=== PATIENT | male | born 1940 | race Caucasian/White ===

== ENCOUNTER 2016-10-19 19:49 | Emergency (ER) | payer MEDICARE ==
[~2016-10-19] VITALS: Ht 172.7 cm; Wt 94.8 kg
--- NOTE | 2016-10-19 20:16 | ED.ADGEN ---
Adult General HPI HPI Patient is a 76-year-old male presents emergency department complaining of substernal chest pressure. Patient states this started approximately 2 hours ago. Began after a large helping of beans. Patient does have a significant cardiac history but reports this does not feel the same as his previous DC. He is here at the urging of his family. He did most recently have a bypass 6 months ago. Patient denies any associated symptoms such as nausea, vomiting, diaphoresis, or dyspnea. Patient did see his hoof trimmer the last 10 days. Review of Systems Review of Systems Constitutional: Denies fever or chills [] Eyes: Denies change in visual acuity, redness, or eye pain [] HENT: Denies nasal congestion or sore throat [] Respiratory: Denies cough or shortness of breath [] Cardiovascular: No additional information not addressed in HPI [] GI: Denies abdominal pain, nausea, vomiting, bloody stools or diarrhea [] : Denies dysuria or hematuria [] Musculoskeletal: Denies back pain or joint pain [] Integument: Denies rash or skin lesions [] Neurologic: Denies headache, focal weakness or sensory changes [] Endocrine: Denies polyuria or polydipsia [] Allergies Allergies Allergies Coded Allergies Type Severity Reaction Last Updated Verified No Known Drug Allergies 10/19/16 No Physical Exam Physical Exam Constitutional: Well developed, well nourished, no acute distress, non-toxic appearance. [] HENT: Normocephalic, atraumatic, bilateral external ears normal, oropharynx moist, no oral exudates, nose normal. [] Eyes: PERRLA, EOMI, conjunctiva normal, no discharge. [] Neck: Normal range of motion, no tenderness, supple, no stridor. [] Cardiovascular:Heart rate regular rhythm, no murmur [] Lungs & Thorax: Bilateral breath sounds clear to auscultation [] Abdomen: Bowel sounds normal, soft, no tenderness, no masses, no pulsatile masses. [] Skin: Warm, dry, no erythema, no rash. [] Back: No tenderness, no CVA tenderness. [] Extremities: No tenderness, no cyanosis, no clubbing, ROM intact, no edema. [] Neurologic: Alert and oriented X 3, normal motor function, normal sensory function, no focal deficits noted. [] Psychologic: Affect normal, judgement normal, mood normal. [] Current Patient Data Vital Signs Vital Signs Date Time Temp Pulse Resp B/P Pulse Ox O2 Delivery O2 Flow Rate FiO2 10/19/16 20:10 98.1 94 20 162/107 93 Room Air Lab Results Laboratory Tests Test 10/19/16 21:03 10/19/16 21:06 10/19/16 21:32 White Blood Count 4.3x10^3/uL (4.0-11.0) Red Blood Count 4.58x10^6/uL (4.30-5.70) Hemoglobin 13.5g/dL (13.0-17.5) Hematocrit 41.2% (39.0-53.0) Mean Corpuscular Volume 90fL (79-100) Mean Corpuscular Hemoglobin 30pg (25-35) Mean Corpuscular Hemoglobin Concent 33g/dL (31-37) Red Cell Distribution Width 14.6% (11.5-14.5) H Platelet Count 136x10^3/uL (140-400) L Neutrophils (%) (Auto) 54% (31-73) Lymphocytes (%) (Auto) 34% (24-48) Monocytes (%) (Auto) 10% (0-9) H Eosinophils (%) (Auto) 1% (0-3) Basophils (%) (Auto) 1% (0-3) Neutrophils # (Auto) 2.3x10^3uL (1.8-7.7) Lymphocytes # (Auto) 1.5x10^3/uL (1.0-4.8) Monocytes # (Auto) 0.4x10^3/uL (0.0-1.1) Eosinophils # (Auto) 0.1x10^3/uL (0.0-0.7) Basophils # (Auto) 0.0x10^3/uL (0.0-0.2) Creatine Kinase 152U/L (39-308) Creatine Kinase MB (Mass) 3.2ng/mL (0.0-3.6) Creatine Kinase MB Relative Index 2.1% (0-4) POC Hemoglobin 13.6gm/dL POC Hematocrit 40% POC Sodium 141mmol/L (135-145) POC Potassium 4.6mmol/L (3.5-5.0) POC Chloride 104mmol/L (98-110) POC Total CO2 26mmol/L (23-32) Anion Gap 17mmol/L (6-14) H POC Blood Urea Nitrogen 36mg/dL (8-26) H POC Creatinine 1.5mg/dL (0.5-1.4) H Glucose Level 140mg/dL (60-99) H POC Ionized Calcium (Saul) 1.22mmol/L (1.13-1.32) POC Troponin I 0.00ng/ml (<0.08) EKG EKG EKG interpreted by me, normal sinus rhythm, 94 bpm, normal axis, no ST segment elevation. [] Radiology/Procedures Radiology/Procedures Chest x-ray interpreted by me, no acute cardiopulmonary process. There are postsurgical changes and cardiomegaly but no definitive infiltrate or effusion [ ] Course & Med Decision Making Course & Med Decision Making Pertinent Labs and Imaging studies reviewed. (See chart for details) The patient reports she feels much better with no intervention. He expresses like to go home tonight. His workup is largely reassuring. I have agreed to let him go home if he will call Dr. Thrasher in the morning and return emergency department sooner she develops any new or worsening symptoms. The patient has family voice understanding and agreement. [] Final Impression Final Impression Chest pain [] Problems: Dragon Disclaimer Dragon Disclaimer This electronic medical record was generated, in whole or in part, using a voice recognition dictation system. EBENEZER WASHBURN MD Oct 19, 2016 20:16
[2016-10-19 21:12] LABS: HEMOGLOBIN ISTAT 13.6 gm/dL; POTASSIUM ISTAT 4.6 mmol/L (3.5-5.0)
[2016-10-19 21:22] LABS: BASO % 1 % (0-3); EOS # 0.1 x10^3/uL (0.0-0.7); EOS % 1 % (0-3); HEMATOCRIT 41.2 % (39.0-53.0); HEMOGLOBIN 13.5 g/dL (13.0-17.5); LYMPH # 1.5 x10^3/uL (1.0-4.8); LYMPH % 34 % (24-48); MEAN CORPUSCULAR HEMOGLOBIN 30 pg (25-35); MEAN CORPUSCULAR HGB CONC 33 g/dL (31-37); MEAN CORPUSCULAR VOLUME 90 fL (79-100); MONO # 0.4 x10^3/uL (0.0-1.1); MONO % 10 % (0-9); NEUT # 2.3 x10^3uL (1.8-7.7); NEUT % 54 % (31-73); PLATELET COUNT 136 x10^3/uL (140-400); RED BLOOD COUNT 4.58 x10^6/uL (4.30-5.70); RED CELL DISTRIBUTION WIDTH 14.6 % (11.5-14.5); WHITE BLOOD COUNT 4.3 x10^3/uL (4.0-11.0)
[2016-10-19 22:28] VITALS: BP 165/81
--- NOTE | 2016-10-20 08:32 | RAD ---
Portable chest, 10/19/2016: History: Chest pain Comparison is made to a study from 01/31/2012. There has been a previous median sternotomy. The left ventricle is mildly enlarged. There is calcific plaquing of the aorta. The pulmonary vascularity is normal. No pulmonary infiltrates are seen. There is no evidence of pleural fluid. IMPRESSION: 1. Cardiomegaly and aortic atherosclerosis. 2. No acute abnormality is detected.
--- NOTE | 2016-10-20 11:42 | EKG ---
[address] [address] Test Date: 2016-10-19 Test Time: 20:00:21 Pat Name: MANUEL MONSON Department: Room: Gender: M Edging Catcher: : 1940 Requested By: EBENEZER WASHBURN Order Number: [id number] Reading MD: Measurements Intervals Forman Rate: 94 P: 33 AR: 172 QRS: 19 QRSD: 100 T: -23 QT: 340 QTc: 430 Interpretive Statements SINUS RHYTHM QRS(T) CONTOUR ABNORMALITY CONSIDER ANTEROLATERAL MYOCARDIAL DAMAGE CONSISTENT WITH INFERIOR INFARCT AGE UNDETERMINED ABNORMAL ECG RI6.01 Unconfirmed report No previous ECG available for comparison
== END 2016-10-19 22:25 | disposition home or self-care (01) ==
LOC: ER 19:49
DX: R07.89 Other chest pain (principal); I51.7 Cardiomegaly; Z95.1 Presence of aortocoronary bypass graft
CPT/HCPCS: 36415; 71010; 80047; 82553; 84484; 85027; 99285-25

== ENCOUNTER → 2019-04-04 | Outpatient (CLI) | payer MEDICARE ==
--- NOTE | 2019-04-05 13:07 | CARD ---
MR#: [id number] Date of Study: 04/04/2019 Ordering Physician: LUIS DELGADO, Referring Physician: LUIS DELGADO Tech: Summer Garcia RDCS APPROVED REPORT EXAM: Two-dimensional and M-mode echocardiogram with Doppler and color Doppler. Other Information Quality : AverageHR: 65bpm Rhythm : NSRTechnically limited study due to body habitus. INDICATION CAD 2D DIMENSIONS RVDd3.4 (2.9-3.5cm)Left Atrium(2D)5.6 (1.6-4.0cm) IVSd1.7 (0.7-1.1cm)Aortic Root(2D)3.5 (2.0-3.7cm) LVDd4.8 (3.9-5.9cm)LVOT Diameter2.4 (1.8-2.4cm) PWd1.5 (0.7-1.1cm)LVDs3.7 (2.5-4.0cm) FS (%) 22.9 %SV48.1 ml LVEF(%)48.0 (>50%) M-Mode DIMENSIONS Left Atrium(MM)4.74 (2.5-4.0cm)Aortic Root3.62 (2.2-3.7cm) Aortic Valve AoV Peak Chuck.188.7cm/sAoV VTI43.4cm AO Peak GR.14.2mmHgLVOT Peak Chuck.72.0cm/s LVOT VTI 15.53cmAO Mean GR.10mmHg HANNAH (VMAX)1.04qt1OHQ (VTI)1.60cm2 AI P 1/2 Lfcg8000ij Mitral Valve MV E Gdhpedsq32.5cm/sMV DECEL UEUT250tj MV A Ajfdcsdx95.5cm/sE/A Ratio0.9 Pulmonary Valve PV Peak Eqfnbddw85.6cm/sPV Peak Grad.2mmHg Tricuspid Valve TR P. Ymljahub734gw/sRAP OULVCWXT0rpCi TR Peak Gr.32prVxBKFI10dbAc LEFT VENTRICLE The left ventricle is normal size. There is moderate concentric left ventricular hypertrophy. Left ve ntricle systolic function is mildly decreased. The Ejection Fraction is 45-50%. Septal motion suggest haider of conduction defect. Transmitral Doppler flow pattern is Grade I-abnormal relaxation pattern. RIGHT VENTRICLE The right ventricle is normal size. There is normal right ventricular wall thickness. The right ventr icular systolic function is normal. ATRIA The left atrium is moderately dilated. The right atrium is mildly dilated. The interatrial septum is intact with no evidence for an atrial septal defect or patent foramen ovale as noted on 2-D or Dopple r imaging. AORTIC VALVE The aortic valve is trileaflet. The aortic valve is moderately calcified. Doppler and Color Flow reve aled mild aortic regurgitation. There is no significant aortic valvular stenosis. MITRAL VALVE Mitral annular calcification is mild to moderate. There is no evidence of mitral valve prolapse. Ther e is no mitral valve stenosis. Doppler and Color-flow revealed trace mitral regurgitation. TRICUSPID VALVE The tricuspid valve is normal in structure and function. Doppler and Color Flow revealed mild tricusp id regurgitation. The PA pressure was estimated at 27 mmHg. There is no tricuspid valve prolapse or v egetation. There is no tricuspid valve stenosis. PULMONIC VALVE The pulmonic valve is not well visualized. GREAT VESSELS The aortic root is normal in size. The ascending aorta is Mildly dilated at 4.5cm. The IVC was not vi sualized. PERICARDIAL EFFUSION There is no evidence of significant pericardial effusion. Critical Notification Critical Value: No <Conclusion> Left ventricle systolic function is mildly decreased. The Ejection Fraction is 45-50%. There is moderate concentric left ventricular hypertrophy. Septal motion suggestive of conduction defect. Doppler and Color Flow revealed mild aortic regurgitation. The ascending aorta is Mildly dilated at 4.5cm. Signed by : Luis E Myles, Electronically Approved : 04/04/2019 12:12:29
--- NOTE | 2019-04-05 13:07 | RAD ---
MR#: [id number] Date of Study: 04/04/2019 Ordering Physician: LUIS DELGADO, Referring Physician: LUIS DELGADO, Tech: Lo Montiel, GINNY, RVT, RTR APPROVED REPORT Patient Location: OUT-PATIENT Indications Bilateral Leg fatigue Risk Factors Hyperlipidemia Cardiac Disease Diabetes Grayscale images of the bilateral lower extremity arterial vessels revealed diffuse plaque. On the right there is severe calcification and plaque at the level of the common femoral artery and b ifurcation. There is likely high-grade stenosis involving the right common femoral artery of greater than 70% stenosis by velocity criteria. Below the knee there are diminished velocities in the posteri or tibial and anterior tibial vessels proximally suggestive of greater than 50% stenosis. The peronea l velocities are within normal limits. On the left no significant high-grade focal obstruction is noted above the knee. Below the knee there is likely occlusion or high-grade disease in the posterior tibial artery and anterior tibial artery with 1 vessel runoff in the form of the peroneal artery. VELOCITY AND DOPPLER WAVEFORM ANALYSIS RIGHT cm/secWaveformSeverity LEFT cm/secWaveform Severity pCFA 312.0pCFA 91.8 dCFA 273.8dCFA 73.0 Prof Fem Art. 105.2Prof Fem Art. 88.9 Fem Art Prox. 131.5Fem Art Prox. 90.4 Fem Art Mid. 68.1Fem Art Mid. 108.5 Fem Art Dist. 65.6Fem Art Dist. 81.7 Pop Art(AK) 88.0Pop Art(AK) 120.0 BOARD FINISHER Prox. 27.3PTA Prox. 27.8 BOARD FINISHER Dist. 65.7PTA Dist. 99.0 Per Art Prox. 61.1Per Art Prox. 81.0 EMILE Prox. 34.7ATA Prox. 35.6 DPA 22DPA 34 Critical Notification Critical Value: No <Conclusion> 1. High-grade right common femoral arterial disease 2. 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 Signed by : Luis E Myles, Electronically Approved : 04/04/2019 12:00:47
== END | disposition home or self-care (01) ==
LOC: US 09:35
PROVIDERS: ATTEND Internal Medicine Cardiovascular Disease
DX: I08.3 Combined rheumatic disorders of mitral, aortic and tricuspid valves (principal); I25.10 Atherosclerotic heart disease of native coronary artery without angina pectoris; I65.21 Occlusion and stenosis of right carotid artery; R53.83 Other fatigue; E11.9 Type 2 diabetes mellitus without complications
CPT/HCPCS: 93306; 93925

== ENCOUNTER → 2019-08-23 | Day surgery (SDC) | payer MEDICARE ==
[~2019-08-23] MED LIST: APIX5TAB3 PO; ASPI-630 PO; ATOR40TA59 PO; CITA20TA6 PO; GLYB5TAB3 PO; LIDOCAINE 2% 20 ML VIAL. ONE; LIDOCAINE 2%/EPI 1:100,000 20 ML VIAL. ONE; LOSA100T14 PO; METF500T16 PO; METO-239 PO
[2019-08-23 11:35] VITALS: BP 138/97
--- NOTE | 2019-08-23 12:27 | PDOC ---
PROVIDER NOTE PROVIDER NOTE PROVIDER NOTE PROCEDURE Implantation of Biotronik Loop Recorder INDICATIONS: TIA of uncertain etiology r/o atrial fibrillation COMPLICATIONS None PROCEDURAL DETAILS An informed consent was obtained from patient. His left chest was prepped and draped in usual fashion. 10 cc 2% lidocaine was infiltrated into skin and subcutaneous tissues for local anasthesia. An incision was made over 3rd intercostal space 1 inch from midsternal line and using the deploying kit provided, a Biotronik Biomonitor III serial number [id number] was inserted in the subcutaneous tissue. Patient tolerated the procedure well. Hemostasis was secured. There were no immediate complications. LUIS DELGADO MD Aug 23, 2019 12:27
== END | disposition home or self-care (01) ==
LOC: SURG 11:26
PROVIDERS: ATTEND Internal Medicine Cardiovascular Disease
DX: Z45.09 Encounter for adjustment and management of other cardiac device (principal); G47.30 Sleep apnea, unspecified; E78.00 Pure hypercholesterolemia, unspecified; I10 Essential (primary) hypertension; J45.909 Unspecified asthma, uncomplicated; F32.9 Major depressive disorder, single episode, unspecified; F41.9 Anxiety disorder, unspecified; F17.210 Nicotine dependence, cigarettes, uncomplicated; K21.9 Gastro-esophageal reflux disease without esophagitis; Z86.010 Personal history of colon polyps; Z80.0 Family history of malignant neoplasm of digestive organs
CPT/HCPCS: 33285; C1764; 33282; J2001

== ENCOUNTER → 2020-07-08 | Outpatient (CLI) | payer MEDICARE ==
[2019-08-23 11:35] VITALS: BP 138/97
[~2020-07-08] MED LIST changes: -LIDOCAINE 2% 20 ML VIAL. ONE; -LIDOCAINE 2%/EPI 1:100,000 20 ML VIAL. ONE; +REGADENOSON 0.4 MG/5 ML DISP.SYRIN. IV ONE
--- NOTE | 2020-07-08 12:40 | CARD ---
MR#: [id number] Date of Study: 07/08/2020 Ordering Physician: LUIS THRASHER, Referring Physician: LUIS THRASHER, Tech: Lo Daigle APPROVED REPORT EXAM: Two-dimensional and M-mode echocardiogram with Doppler and color Doppler. Other Information Quality : AverageHR: 81bpm INDICATION Cardiac Disease: CAD Surgery/Intervention CABG: Date: 2015 Site: [place] RISK FACTORS Hypertension Hyperlipidemia Diabetes 2D DIMENSIONS RVDd3.9 (2.9-3.5cm)Left Atrium(2D)4.7 (1.6-4.0cm) IVSd1.3 (0.7-1.1cm)Aortic Root(2D)3.4 (2.0-3.7cm) LVDd5.7 (3.9-5.9cm)LVOT Diameter2.0 (1.8-2.4cm) PWd1.2 (0.7-1.1cm)LVDs4.5 (2.5-4.0cm) FS (%) 21.5 %SV68.8 ml LVEF(%)43.0 (>50%) Aortic Valve AoV Peak Chuck.230.4cm/sAoV VTI51.5cm AO Peak GR.21.2mmHgLVOT Peak Chuck.102.9cm/s LVOT VTI 20.59cmAO Mean GR.13mmHg HANNAH (VMAX)1.11oy4IPL (VTI)1.27cm2 AI P 1/2 Dhbx865ds Mitral Valve MV E Mphfnjaz43.8cm/sMV DECEL SXZR963bx MV A Ljmjvkcu595.8cm/sE/A Ratio0.7 Pulmonary Valve PV Peak Xvjwcbfa88.8cm/sPV Peak Grad.1mmHg Tricuspid Valve TR P. Mgmqimyw935hd/sRAP GPXKEVGI4kwCx TR Peak Gr.71mqNfSYWW76kyHp Pulmonary Vein S1 Ttnmdtkr07.4cm/sD2 Vjwwbppz76.7cm/s LEFT VENTRICLE The left ventricle is normal size. There is mild to moderate concentric left ventricular hypertrophy. The left ventricular systolic function is normal. The Ejection Fraction is 50-55%. Septal motion con sistent with conduction abnormality Transmitral Doppler flow pattern is Grade I-abnormal relaxation p attern. RIGHT VENTRICLE The right ventricle is normal size. There is normal right ventricular wall thickness. The right ventr icular systolic function is normal. ATRIA The left atrium is mildly dilated. The right atrium is borderline dilated. The interatrial septum is intact with no evidence for an atrial septal defect or patent foramen ovale as noted on 2-D or Dopple r imaging. AORTIC VALVE The aortic valve is thickened but opens well. Doppler and Color Flow revealed mild aortic regurgitati on. Calculated aortic valve area is 1.6 cm2 with maximum pressure gradient of 22 mmHg and mean pressu re gradient of 13 mmHg. There is no significant aortic valvular stenosis. MITRAL VALVE Mitral annular calcification is mild. There is no evidence of mitral valve prolapse. There is no mitr al valve stenosis. Doppler and Color Flow revealed no mitral valve regurgitation noted. TRICUSPID VALVE The tricuspid valve is normal in structure and function. Doppler and Color Flow revealed trace tricus pid regurgitation with an estimated PAP of 27 mmHg. There is no tricuspid valve stenosis. PULMONIC VALVE The pulmonic valve is not well visualized. Doppler and Color Flow revealed trace to mild pulmonic magali vular regurgitation. GREAT VESSELS The aortic root is normal in size. The ascending aorta is normal in size. The IVC is normal in size a nd collapses >50% with inspiration. PERICARDIAL EFFUSION There is no evidence of significant pericardial effusion. Critical Notification Critical Value: No <Conclusion> The left ventricular systolic function is normal. The Ejection Fraction is 50-55%. Transmitral Doppler flow pattern is Grade I-abnormal relaxation pattern. Mild aortic regurgitation. Trace tricuspid regurgitation with an estimated PAP of 27 mmHg. There is no evidence of significant pericardial effusion. Signed by : Luis Thrasher, Electronically Approved : 07/08/2020 12:39:54
--- NOTE | 2020-07-08 12:45 | RAD ---
MR#: [id number] Date of Study: 07/08/2020 Ordering Physician: LUIS THRASHER Referring Physician: UCHE [place] Tech: RT Alverto Khan) (N) APPROVED REPORT Test Type: Pharmacological Stress Nurse/Tech: RT Erin (Aracely) (N) Test Indications: coronary artery disease Cardiac History: 3 bypass 5 year ago Medications: see EHR Medical History: see EHR Resting ECG: sinus rythm Resting Heart Rate: 75 bpm Resting Blood Pressure: 188/90mmHg Pretest Chest Pain: None Nurse/Tech Notes Consent: The procedure was explained to the patient in lay terms. Informed consent was witnessed. Barber eout was entered into [employer]. History and Stress Test performed by RT Alverto Khan) (N) Pharm. Details Pharmacologic stress testing was performed using 0.4mg per 5ml of regadenoson given intravenously ove r 7-10 seconds. Stress Symptoms headache POST EXERCISE Reason for Termination: Infusion complete Max HR: 107 bpm Max Blood Pressure: 201/79mmHg INTERPRETATION Stress EKG Conclusion: Baseline EKG showed sinus rhythm. No ischemic changes at peak stress. No arr hythmias. Imaging Protocol IMAGE PROTOCOL: Rest Tc-99m/stress Tc-99m 1 day Rest: Stress: Viability: Radiopharm.Tc99m QbgoozevnMh62w Sestamibi Dose10.4mCi 30.2mCi Duration 15min. 10min. Img Date 07/08/2020 07/08/2020 Inj-Img Uuut05phj. 60min. Rest Admin Site:IV - Left ForearmAdministrator: RT Erin (R)(N) Stress Admin Site: IV - Left ForearmAdministrator: RT Alverto Khan)(N) STRESS DATA End Diast. Vol.106.0mlAv. Heart Rate92.0bpm End Syst. Vol.34.0mlCO Index BSA0.0L/min Myocardial Jngf361.0gEject. Ftbsxxyu90.0% Stress Rates Pk. Fill Rate3.12EDV/secLVtime Pk. Fill 61.30msec Pk. Empty Rate4.73ESV/secLVtime Pk. Qymmy968.40msec 1/3 Pk. Fill2.30EDV/sec Stress Scores Regional WT0.00Summed WT13.00 Regional WM0.00Summed WM5.00 Study quality was good. Left Ventricular size was at Rest and Stress. Lung uptake was . Left Ventricular ejection fraction is 69%. The rest and stress images show normal perfusion, normal contraction and thickening. LV Perf. Quant 17 Seg. SSS5.00 17 Seg. SRS7.00 17 Seg. SDS0.00 Stress Defect Extent (% LAD)0.00Rest Defect Extent (% LAD)3.80Rev. Defect Extent (% LAD)0.00 Stress Defect Extent (% LCX) 47.50Rest Defect Extent (% LCX)56.30Rev. Defect Extent (% LCX)0.00 Stress Defect Extent (% RCA)17.80Rest Defect Extent (% RCA)10.00Rev. Defect Extent (% RCA)0.00 Stress Defect Extent (% YRN)13.90Rest Defect Extent (% YRN)16.70Rev. Defect Extent (% YRN)0.00 Conclusion 1. Regadenoson cardioisotope stress test did not show any evidence of ischemia or infarct. 2. Normal left ventricular systolic function with ejection fraction calculated at 69%. 3. Low risk for cardiac events. Signed by : Luis Thrasher, Electronically Approved : 07/08/2020 12:45:03
== END ==
LOC: NM 07:55
PROVIDERS: ATTEND Internal Medicine Cardiovascular Disease
DX: I08.8 Other rheumatic multiple valve diseases (principal); I11.9 Hypertensive heart disease without heart failure; I25.10 Atherosclerotic heart disease of native coronary artery without angina pectoris
CPT/HCPCS: 78452; 93017; 93306; A9500; J2785

== ENCOUNTER → 2021-07-07 | Outpatient (CLI) | payer MEDICARE ==
[2019-08-23 11:35] VITALS: BP 138/97
[~2021-07-07] MED LIST changes: +IOHEXOL 350 MG/ML 100 ML VIAL. IV ONE; -REGADENOSON 0.4 MG/5 ML DISP.SYRIN. IV ONE
[2021-07-07 11:06] LABS: CREATININE 1.7 mg/dL (0.7-1.3); GFR 38.8
--- NOTE | 2021-07-07 16:38 | RAD ---
PQRS Compliance Statement: One or more of the following individualized dose reduction techniques were utilized for this examinat ion: 1. Automated exposure control 2. Adjustment of the mA and/or kV according to patient size 3. Use of iterative reconstruction technique CT THORAX WO/W 07/07/2021 10:12 AM Indication: Coronary artery disease. COMPARISON: None available. TECHNIQUE: Multiple axial CT images of the chest were obtained without intravenous contrast. Coronal and sagittal reformats are provided. FINDINGS: There is a left supraclavicular lymph node measuring 1.2 cm. Left axillary lymph node measures up to 1.5 cm. Right axillary lymph nodes measure up to 1.5 cm. Calcified mediastinal and bilateral hilar ly mph nodes suggest sequela prior granulomatous exposure. Heart size within normal limits. Ascending th oracic aorta measures up to 4.4 cm, aneurysmal. Three-vessel coronary vascular calcifications are pre sent. Median sternotomy changes are present. Aortic valvular calcifications are noted. There is no pe ricardial effusion. Calcified granulomas are identified within the lungs. There is a 3 mm solid nonca lcified pulmonary nodule in the left upper lobe (series 4, image 17). No pleural effusions, pulmonary vascular congestion or pneumothorax. Lungs are otherwise clear. Left chest wall cardiac monitoring d evice is identified. There is a gastrohepatic lymph node measuring 1.5 cm. Peripancreatic lymph nodes measure up to 1.4 cm. Portacaval lymph node is borderline enlarged. Mild nodular contour of the hepa tic parenchyma could reflect underlying cirrhosis. Simple cyst in the superior pole the left kidney m easures 3.1 cm. Simple cyst in the medial segment left hepatic lobe measures 5.1 cm. Lucent changes a re identified involving T1, T7, T9 and T11. Consideration may be given for osseous hemangioma is. No aggressive osseous lesions are identified. IMPRESSION: 1. Enlarged lymphadenopathy involving the left supraclavicular space, bilateral axillary spaces and u pper abdomen. Differential considerations would include lymphoma or metastatic disease. 2. Three-vessel coronary vascular opacifications are identified. Aneurysm of the ascending thoracic a mp measures 4.4 cm. 3. 3 mm solid noncalcified pulmonary nodule in the left upper lobe. Fleischner guidelines for inciden tally detected pulmonary nodules suggests no routine follow-up for low risk patients and optional CT at 12 months for high risk patients with solid noncalcified pulmonary nodules less than 6 mm in size. Electronically signed by: Soumya Marshall MD (07/07/2021 4:36 PM) [id number]
== END ==
LOC: CT 10:07
PROVIDERS: ATTEND Internal Medicine Cardiovascular Disease
DX: I71.2 Thoracic aortic aneurysm, without rupture (principal); R59.0 Localized enlarged lymph nodes; I25.10 Atherosclerotic heart disease of native coronary artery without angina pectoris; I35.1 Nonrheumatic aortic (valve) insufficiency; J84.10 Pulmonary fibrosis, unspecified; R91.1 Solitary pulmonary nodule; N28.1 Cyst of kidney, acquired; K76.89 Other specified diseases of liver
CPT/HCPCS: 36415; 71270; 82565; 84520; Q9967

== ENCOUNTER → 2021-07-28 | Outpatient (CLI) | payer MEDICARE ==
[2019-08-23 11:35] VITALS: BP 138/97
[~2021-07-28] MED LIST changes: -IOHEXOL 350 MG/ML 100 ML VIAL. IV ONE
--- NOTE | 2021-07-29 16:41 | CARD ---
MR#: [id number] Date of Study: 07/28/2021 Ordering Physician: LUIS DELGADO, Referring Physician: LUIS DELGADO, Tech: Lo Daigle [facility] APPROVED REPORT EXAM: Two-dimensional and M-mode echocardiogram with Doppler and color Doppler. Other Information Quality : AverageHR: 83bpm Technically limited study due to body habitus. INDICATION Cardiac Disease: CAD Surgery/Intervention CABG: Date: 2015 Site: [place] RISK FACTORS Hyperlipidemia Diabetes 2D DIMENSIONS Left Atrium(2D)4.9 (1.6-4.0cm)IVSd1.4 (0.7-1.1cm) Aortic Root(2D)3.3 (2.0-3.7cm)LVDd5.1 (3.9-5.9cm) LVOT Diameter2.0 (1.8-2.4cm)PWd1.3 (0.7-1.1cm) LVDs3.1 (2.5-4.0cm)FS (%) 38.5 % SV85.4 mlLVEF(%)68.5 (>50%) Aortic Valve AoV Peak Chuck.293.3cm/sAoV VTI58.2cm AO Peak GR.34.4mmHgLVOT Peak Chuck.181.6cm/s LVOT VTI 34.66cmAO Mean GR.17mmHg HANNAH (VMAX)2.06rn7HKL (VTI)1.94cm2 Mitral Valve MV E Dovgrknz72.1cm/sMV E Peak Gr.6mmHg MV DECEL [id number] A Nqgfiknr91.6cm/s MV E Mean Gr.3mmHgE/A Ratio1.0 Pulmonary Valve PV Peak Xadtjdqs54.0cm/sPV Peak Grad.1mmHg Tricuspid Valve TR P. Xexrnojd280mu/sRAP [id number] TR Peak Gr.28ftUeFKWI97uiBl LEFT VENTRICLE The left ventricle is normal size. There is moderate concentric left ventricular hypertrophy. The lef t ventricular systolic function is normal and the ejection fraction is within normal range. The Eject ion Fraction is 55%. Septal motion consistent with conduction abnormality. Otherwise, grossly normal wall motion. Transmitral Doppler flow pattern is Grade I-abnormal relaxation pattern. RIGHT VENTRICLE The right ventricle is normal size. There is normal right ventricular wall thickness. The right ventr icular systolic function is normal. ATRIA The left atrium is moderately dilated. The right atrium is mildly dilated. The interatrial septum is intact with no evidence for an atrial septal defect or patent foramen ovale as noted on 2-D or Dopple r imaging. AORTIC VALVE The aortic valve is calcified with restricted leaflet motion. Doppler and Color Flow revealed trace a ortic regurgitation. Visually the valve appears moderately stenotic. There is mild aortic stenosis by Doppler criteria. Calculated aortic valve area is 2.2 cm2 with maximum pressure gradient of 34 mmHg and mean pressure gradient of 14 mmHg. MITRAL VALVE Moderately calcified mitral valve with restricted leaflet motion. There is no evidence of mitral valv e prolapse. There is no mitral valve stenosis. Doppler and Color-flow revealed trace mitral regurgita tion. TRICUSPID VALVE The tricuspid valve is normal in structure and function. Doppler and Color Flow revealed trace tricus pid regurgitation with an estimated PAP of 38 mmHg. There is no tricuspid valve stenosis. PULMONIC VALVE Doppler and Color Flow revealed trace to mild pulmonic valvular regurgitation. There is no pulmonic v alvular stenosis. GREAT VESSELS The aortic root is normal in size. The ascending aorta is normal in size. The IVC was not visualized. PERICARDIAL EFFUSION There is no evidence of significant pericardial effusion. Critical Notification Critical Value: No <Conclusion> The left ventricular systolic function is normal and the ejection fraction is within normal range. Th e Ejection Fraction is 55%. Septal motion consistent with conduction abnormality. Otherwise, grossly normal wall motion. Visually the valve appears moderately stenotic. There is mild aortic stenosis by Doppler criteria. C alculated aortic valve area is 2.2 cm2 with maximum pressure gradient of 34 mmHg and mean pressure gr adient of 14 mmHg. Technically difficult study. Signed by : Luis E Myles, Electronically Approved : 07/29/2021 16:40:52
== END ==
LOC: ECHO 11:00
PROVIDERS: ATTEND Internal Medicine Cardiovascular Disease
DX: I08.0 Rheumatic disorders of both mitral and aortic valves (principal); I25.10 Atherosclerotic heart disease of native coronary artery without angina pectoris; Z95.1 Presence of aortocoronary bypass graft
CPT/HCPCS: 93306